=== PATIENT | male | born 1935 | race Caucasian/White ===

== ENCOUNTER → 2021-04-15 | Outpatient (CLI) | payer MEDICARE, OTHER ==
[2020-05-20 15:00] VITALS: BP 142/95
[~2021-04-15] MED LIST: ALBU2.5V8 NEB; ASPI-630 PO; ASPI-886 PO; DOCU-148 PO; GUAI100L12 PO; HYDR-2761 PO; LEVO-101 PO; METO25TA4 PO; NITR0.4T24 SL; PANT40TA77 PO; [UNRECOGNIZED DRUG - CODE] OU
--- NOTE | 2021-04-15 10:05 | RAD ---
CT Head without contrast 04/15/2021 9:50 AM Indication: Reason: ALZHEIMER'S DISEASE / Spl. Instructions: / History: Comparison: None available Findings: No intracranial hemorrhage is seen. No evidence of acute territorial infarct is seen. Note that CT is limited in sensitivity for acute ischemia. Mild senescent atrophic changes are noted. The re is patchy periventricular and deep white matter hypoattenuation which is nonspecific, but most com monly relates to chronic small vessel disease. No abnormal extra axial fluid collection is identifie d. No mass effect or midline shift is seen. No acute osseous abnormalities are seen. Impression: 1. No acute intracranial process identified 2. Mild senescent atrophy, and mild changes of chronic small vessel disease as described CT DOSING PQRS STATEMENT: One or more of the following individualized dose reduction techniques were utilized for this examinat ion: 1. Automated exposure control 2. Adjustment of the mA and/or kV according to patient size 3. Use of iterative reconstruction technique Electronically signed by: Sammy De La Torre MD (04/15/2021 10:03 AM) [id number]
== END ==
LOC: CT 11:43
PROVIDERS: ATTEND Psychiatry & Neurology Neurology with Special Qualifications in Child Neurology
DX: G30.9 Alzheimer's disease, unspecified (principal); G31.9 Degenerative disease of nervous system, unspecified; I73.9 Peripheral vascular disease, unspecified
CPT/HCPCS: 70450